=== PATIENT | male | born 1995 | race Asian ===

== ENCOUNTER 2021-11-12 20:03 | Emergency (ER) | payer OTHER ==
[~2021-11-12] VITALS: Ht 185.4 cm; Wt 86.3 kg
--- NOTE | 2021-11-12 20:08 | ED Abdominal Pain ---
General Stated Complaint: ABD PAIN History of Present Illness Date Seen by Provider: Nov 12, 2021 Time Seen by Provider: 20:08 Initial Comments 26-year-old male presents with mid abdominal pain. Reports that it started this morning as a crampy pain. Patient reports that he worked outside throughout the day and it was Constant throughout the day. He reports that he came home and ate supper. He ate around 545 and that about an hour or so after that it got significantly worse. Reports has had normal bowel movements, no nausea no vomiting. The pain does not radiate. States that he had this couple days ago that was similar when he was working on the heat but went away after he he got indoors cool down and got something to drink. Reports that they try to be sure that they drink plenty of water while working out in the heat. Patient denies any fever, cough or other systemic complaints. Allergies and Home Medications Allergies Coded Allergies: No Known Drug Allergies (Unverified , 11/12/21) Patient Home Medication List Home Medication List Reviewed: Yes No Active Prescriptions or Reported Meds Review of Systems Review of Systems Constitutional: No chills, No fever Respiratory: Denies Cough, Denies Shortness of Air Cardiovascular: Denies Chest Pain, Denies Palpitations Gastrointestinal: Abdominal Pain; Denies Constipated, Denies Diarrhea, Denies Nausea, Denies Vomiting Genitourinary: No Symptoms Reported Musculoskeletal: no symptoms reported Skin: no symptoms reported Psychiatric/Neurological: No Symptoms Reported Endocrine: No Symptoms Reported Physical Exam Vital Signs Vital Signs - First Documented 11/12/21 20:08 Temp 36.8 Pulse 122 Resp 22 B/P (MAP) 164/104 (124) Pulse Ox 97 O2 Delivery Room Air Capillary Refill : Height/Weight/BMI Height: '" Weight: lbs. oz. kg; BMI Method: General Appearance: mild distress HEENT: PERRL/EOMI, pharynx normal Neck: full range of motion, supple, normal inspection Respiratory: lungs clear, normal breath sounds, no respiratory distress Cardiovascular: normal peripheral pulses, regular rate, rhythm Gastrointestinal: soft; No distended, No guarding; tenderness (Mild discomfort but not really tenderness) Extremities: normal range of motion, non-tender Neurologic/Psychiatric: alert, normal mood/affect, oriented x 3 Skin: normal color, warm/dry Progress/Results/Core Measures Results/Orders Lab Results Laboratory Tests Test 11/12/21 20:40 11/12/21 22:25 Range/Units White Blood Count 9.3 4.3-11.0 10^3/uL Red Blood Count 5.09 4.30-5.52 10^6/uL Hemoglobin 15.1 13.3-17.7 g/dL Hematocrit 43 40-54 % Mean Corpuscular Volume 85 80-99 fL Mean Corpuscular Hemoglobin 30 25-34 pg Mean Corpuscular Hemoglobin Concent 35 32-36 g/dL Red Cell Distribution Width 12.4 10.0-14.5 % Platelet Count 169 130-400 10^3/uL Mean Platelet Volume 11.8 9.0-12.2 fL Immature Granulocyte % (Auto) 0 % Neutrophils (%) (Auto) 59 42-75 % Lymphocytes (%) (Auto) 29 12-44 % Monocytes (%) (Auto) 9 0-12 % Eosinophils (%) (Auto) 2 0-10 % Basophils (%) (Auto) 0 0-10 % Neutrophils # (Auto) 5.5 1.8-7.8 10^3/uL Lymphocytes # (Auto) 2.7 1.0-4.0 10^3/uL Monocytes # (Auto) 0.9 0.0-1.0 10^3/uL Eosinophils # (Auto) 0.2 0.0-0.3 10^3/uL Basophils # (Auto) 0.0 0.0-0.1 10^3/uL Immature Granulocyte # (Auto) 0.0 0.0-0.1 10^3/uL Sodium Level 142 135-145 MMOL/L Potassium Level 3.6 3.6-5.0 MMOL/L Chloride Level 102 98-107 MMOL/L Carbon Dioxide Level 26 21-32 MMOL/L Anion Gap 14 5-14 MMOL/L Blood Urea Nitrogen 19 H 7-18 MG/DL Creatinine 1.12 0.60-1.30 MG/DL Estimat Glomerular Filtration Rate 94 BUN/Creatinine Ratio 17 Glucose Level 98 70-105 MG/DL Calcium Level 9.8 8.5-10.1 MG/DL Corrected Calcium 8.5-10.1 MG/DL Total Bilirubin 0.3 0.1-1.0 MG/DL Aspartate Amino Transf (AST/SGOT) 16 5-34 U/L Alanine Aminotransferase (ALT/SGPT) 13 0-55 U/L Alkaline Phosphatase 97 40-136 U/L C-Reactive Protein < 0.30 <0.50 MG/DL Total Protein 7.9 6.4-8.2 GM/DL Albumin 5.3 H 3.2-4.5 GM/DL Lipase 10 8-78 U/L Urine Color YELLOW Urine Clarity SL CLOUDY Urine pH 7.0 5-9 Urine Specific [place] 1.020 1.016-1.022 Urine Protein NEGATIVE NEGATIVE Urine Glucose (UA) NEGATIVE NEGATIVE Urine Ketones 1+ H NEGATIVE Urine Nitrite NEGATIVE NEGATIVE Urine Bilirubin NEGATIVE NEGATIVE Urine Urobilinogen 0.2 < = 1.0 MG/DL Urine Leukocyte Esterase NEGATIVE NEGATIVE Urine RBC (Auto) NEGATIVE NEGATIVE Urine RBC RARE /HPF Urine WBC NONE /HPF Urine Squamous Epithelial Cells NONE /HPF Urine Crystals NONE /LPF Urine Bacteria LARGE H /HPF Urine Casts NONE /LPF Urine Mucus SMALL H /LPF Urine Culture Indicated YES My Orders Orders - CAMPA,NICA L DO Cbc With Automated Diff (11/12/21 20:20) Comprehensive Metabolic Panel (11/12/21 20:20) Lipase (11/12/21 20:20) Ua Culture If Indicated (11/12/21 20:20) Crp Fs (11/12/21 20:20) Lactated Ringers (Lr 1000 Ml Iv Solution (11/12/21 20:20) Hyoscyamine Sl Tablet (Levsin Sl Tablet) (11/12/21 20:30) Ed Iv/Invasive Line Start (11/12/21 20:20) Abdomen Flat & Upright/Decub (11/12/21 20:20) Ketorolac Injection (Toradol Injection) (11/12/21 21:13) Lactated Ringers (Lr 1000 Ml Iv Solution (11/12/21 21:13) Urine Culture (11/12/21 22:25) Medications Given in ED Current Medications Medications Dose Ordered Sig/Aurora Route Start Time Stop Time Status Last Admin Dose Admin Hyoscyamine Sulfate 0.125 mg ONCE ONCE SL 11/12/21 20:30 11/12/21 20:31 DC 11/12/21 20:30 0.125 MG Vital Signs/I&O 11/12/21 11/12/21 20:08 21:28 Temp 36.8 36.8 Pulse 122 Resp 22 B/P (MAP) 164/104 (124) Pulse Ox 97 O2 Delivery Room Air Progress Progress Note : Progress Note Patient lab shows no acute findings. His abdominal cramping improved with treatment. I do suspect he was mildly dehydrated as it took almost 1.5 to 2 L before he urinated. Urine showed some bacteria but otherwise no nitrates or leukocytes. At this time I will await cultures prior to treating him. Did not feel his exam or symptoms would warrant a CAT scan at this time. If his symptoms return or continue to worsen he should return to the ER and at that time we we will consider a CT exam. I did recommend he drinks plenty of fluids since he works out in the heat. Patient was stable and discharged home Diagnostic Imaging Diagonstic Imaging: Xray Plain Films/CT/US/NM/MRI: abdomen Comments Date of Exam:11/12/21 ABDOMEN FLAT & UPRIGHT/DECUB INDICATION: Abdominal pain Supine and upright abdominal films are obtained. Upright view shows no free air. The abdominal bowel gas pattern shows no overt intestinal dilatation or obstruction. There does appear to be a large amount of retained food material in the stomach. There are no suspicious calcifications. IMPRESSION: Large amount of retained food material in the stomach. No intestinal obstruction. No suspicious calcification. No free intraperitoneal air. Departure Impression Primary Impression: Dehydration Additional Impression: Abdominal cramping, generalized Disposition: 01 HOME, SELF-CARE Condition: Stable Departure-Patient Inst. Patient Instructions: Stomach Ache and Stomach Upset, Dehydration, Adult ED Add. Discharge Instructions: Follow-up with your primary care provider as needed Drink plenty of liquids and stay hydrated Return to the ER as needed if symptoms return or worsen Scripts No Active Prescriptions or Reported Meds NICA CAMPA DO Nov 12, 2021 20:08
[2021-11-12] MEDS ORDERED: LACTATED RINGERS 1,000 ML IV STA ×2 (20:20→21:13)
[2021-11-12] MEDS ORDERED: HYOSCYAMINE 0.125 MG (LEVSIN) TAB SL ONE (20:30)
--- NOTE | 2021-11-12 20:43 | Diagnostic Imaging Report ---
INDICATION: Abdominal pain Supine and upright abdominal films are obtained. Upright view shows no free air. The abdominal bowel gas pattern shows no overt intestinal dilatation or obstruction. There does appear to be a large amount of retained food material in the stomach. There are no suspicious calcifications. IMPRESSION: Large amount of retained food material in the stomach. No intestinal obstruction. No suspicious calcification. No free intraperitoneal air. Dictated by: Dictated on workstation # [id number]
[2021-11-12 20:46] LABS: BASOPHILS % (AUTO) 0 % (0-10); EOSINOPHILS # (AUTO) 0.2 10^3/uL (0.0-0.3); EOSINOPHILS % (AUTO) 2 % (0-10); HEMATOCRIT 43 % (40-54); HEMOGLOBIN 15.1 g/dL (13.3-17.7); LYMPHOCYTES # (AUTO) 2.7 10^3/uL (1.0-4.0); LYMPHOCYTES % (AUTO) 29 % (12-44); MEAN CORPUSCULAR HEMOGLOBIN 30 pg (25-34); MEAN CORPUSCULAR HGB CONC 35 g/dL (32-36); MEAN CORPUSCULAR VOLUME 85 fL (80-99); MEAN PLATELET VOLUME 11.8 fL (9.0-12.2); MONOCYTES # (AUTO) 0.9 10^3/uL (0.0-1.0); MONOCYTES % (AUTO) 9 % (0-12); NEUTROPHILS # (AUTO) 5.5 10^3/uL (1.8-7.8); NEUTROPHILS % (AUTO) 59 % (42-75); PLATELET COUNT 169 10^3/uL (130-400); WHITE BLOOD COUNT 9.3 10^3/uL (4.3-11.0)
[2021-11-12 21:02] LABS: BUN/CREATININE RATIO 17; CALCIUM 9.8 MG/DL (8.5-10.1); CARBON DIOXIDE 26 MMOL/L (21-32); CHLORIDE 102 MMOL/L (98-107); CREATININE SERUM 1.12 MG/DL (0.60-1.30); GFR ESTIMATED 94; GLUCOSE 98 MG/DL (70-105); POTASSIUM 3.6 MMOL/L (3.6-5.0); SODIUM 142 MMOL/L (135-145)
[2021-11-12 21:03] LABS: ALANINE AMINOTRANSFERASE 13 U/L (0-55); ALBUMIN 5.3 GM/DL (3.2-4.5); ALKALINE PHOSPHATASE 97 U/L (40-136); BILIRUBIN,TOTAL 0.3 MG/DL (0.1-1.0); LIPASE 10 U/L (8-78); TOTAL PROTEIN 7.9 GM/DL (6.4-8.2)
[2021-11-12] MEDS ORDERED: KETOROLAC 30 MG/ML VIAL IVP STA (21:13)
[2021-11-12 22:33] LABS: BILIRUBIN,URINE NEGATIVE (NEGATIVE); CLARITY,URINE SL CLOUDY; COLOR,URINE YELLOW; GLUCOSE, URINE (UA) NEGATIVE (NEGATIVE); KETONES,URINE 1+ (NEGATIVE); LEUKOCYTE ESTERASE ,URINE NEGATIVE (NEGATIVE); NITRITE,URINE NEGATIVE (NEGATIVE); PROTEIN,URINE NEGATIVE (NEGATIVE)
[2021-11-12 22:39] LABS: BACTERIA,URINE LARGE /HPF; RBC,URINE RARE /HPF
[2021-11-12 23:00] VITALS: BP 148/88
[2021-11-13] MEDS ORDERED: ACHD5005 PO (13:31)
== END 2021-11-12 23:00 | disposition home or self-care (01) ==
LOC: ER FS 20:04
DX: E86.0 Dehydration (principal); Z28.310 Unvaccinated for COVID-19
CPT/HCPCS: 36415; 74019; 80053; 81000; 83690; 85025; 86141; 87088

== ENCOUNTER 2021-11-13 08:37 | Day surgery (SDC) | payer OTHER ==
[2021-11-13] VITALS (10 sets, daily range): BP systolic 120–158; BP diastolic 64–84
[~2021-11-13] VITALS: Ht 185 cm; Wt 83.4 kg
[2021-11-13] MEDS ORDERED: DICYCLOMINE 10 MG/ML (BENTYL) 2 ML AMP IM STA (08:48)
[2021-11-13] MEDS ORDERED: NS IV 1000 ML 1,000 ML IV STA (08:48)
[2021-11-13] MEDS ORDERED: IOHEXOL 350 MG/ML 100 ML (OMNIPAQUE 350) VIAL IV ONE (09:00)
[2021-11-13] MEDS ORDERED: HOLD METFORMIN - RECEIVED CONTRAST 20 ML VIAL IV SCH (09:00)
[2021-11-13] MEDS ORDERED: NS 100 ML (IVPB) BAG IV ONE (09:00)
[2021-11-13 09:09] LABS: BASOPHILS % (AUTO) 0 % (0-10); EOSINOPHILS # (AUTO) 0.1 10^3/uL (0.0-0.3); EOSINOPHILS % (AUTO) 1 % (0-10); HEMATOCRIT 43 % (40-54); LYMPHOCYTES # (AUTO) 1.6 10^3/uL (1.0-4.0); LYMPHOCYTES % (AUTO) 11 % (12-44); MEAN CORPUSCULAR HEMOGLOBIN 30 pg (25-34); MEAN CORPUSCULAR HGB CONC 35 g/dL (32-36); MEAN CORPUSCULAR VOLUME 86 fL (80-99); MEAN PLATELET VOLUME 11.8 fL (9.0-12.2); MONOCYTES # (AUTO) 1.4 10^3/uL (0.0-1.0); MONOCYTES % (AUTO) 9 % (0-12); NEUTROPHILS # (AUTO) 12.1 10^3/uL (1.8-7.8); NEUTROPHILS % (AUTO) 79 % (42-75); PLATELET COUNT 162 10^3/uL (130-400); WHITE BLOOD COUNT 15.4 10^3/uL (4.3-11.0)
--- NOTE | 2021-11-13 09:21 | ED GI ---
General Chief Complaint: Abdominal/GI Problems Stated Complaint: ABDOMINAL PAIN Nursing Triage Note: Patient has presented to ER with cc of ongoing abd pain. Patient reports that his pain started yesterday in his upper abd. Last night he was in the ER and he was sent home. Today his pain has moved more general with cramping and more cramping in the right side. He has not taken anything for the pain and came to ER for evaluation. Source of Information: Patient, Old Records History of Present Illness Date Seen by Provider: Nov 13, 2021 Time Seen by Provider: 08:39 Initial Comments 26-year-old male presenting with complaints of continued abdominal pain since being seen yesterday. He states that he has some pain in the epigastric area right under his diaphragm. Otherwise he feels like the pain is a sharp cramping pain that has moved more to the right side of his abdomen. He denies nausea, vomiting, diarrhea, fever, chills. He has not eaten anything since supper at 545 last night. He has been drinking fluids since he was told he was dehydrated but he was unable to sleep overnight because of the increasing pain. He denies any other medical problems and has no primary care provider for follow-up. He has not tried taking anything for the pain. Timing/Duration: 1-2 Days Severity/Quality: Cramping Location: Generalized Abdomen (but a little worse on right side of abdomen) Allergies and Home Medications Allergies Coded Allergies: No Known Drug Allergies (Unverified , 11/12/21) Patient Home Medication List Home Medication List Reviewed: Yes No Active Prescriptions or Reported Meds Review of Systems Review of Systems Constitutional: No chills, No fever EENTM: No Symptoms Reported Respiratory: No Symptoms Reported Cardiovascular: No Symptoms Reported Gastrointestinal: See HPI; Denies Diarrhea, Denies Nausea, Denies Vomiting Genitourinary: No Symptoms Reported Musculoskeletal: no symptoms reported Skin: no symptoms reported Psychiatric/Neurological: No Symptoms Reported Endocrine: No Symptoms Reported Hematologic/Lymphatic: No Symptoms Reported Past Wvfcsyj-Akexom-Vwklfc Hx Patient Social History Tobacco Use?: Yes Tobacco type used: Cigarettes Smoking Status: Current Someday Smoker Use of E-Cig and/or Vaping dev: No Substance use?: No Alcohol Use?: No Pt feels they are or have been: No Immunizations Up To Date First/Initial COVID19 Vaccinat: unvaccinated Past Medical History Surgery/Hospitalization HX: Feet surgery x 2, [place] teeth Physical Exam Vital Signs Vital Signs - First Documented 11/13/21 08:49 Temp 35.7 Pulse 56 Resp 16 B/P (MAP) 145/79 (101) Pulse Ox 99 O2 Delivery Room Air Capillary Refill : Height/Weight/BMI Height: '" Weight: lbs. oz. kg; 24.00 BMI Method: General Appearance: WD/WN, no apparent distress HEENT: PERRL/EOMI, pharynx normal Neck: non-tender, full range of motion, supple, normal inspection Respiratory: chest non-tender, lungs clear, normal breath sounds, no respiratory distress, no accessory muscle use Cardiovascular: normal peripheral pulses, bradycardia Gastrointestinal: soft, no pulsatile mass, abnormal bowel sounds (hypoactive), guarding (RLQ), rebound (RLQ), tenderness (diffuse tenderness but worse on the epigastric and RLQ areas) Rectal: deferred Extremities: normal range of motion, non-tender, normal capillary refill Back: no CVA tenderness 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/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 II-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 nml as tested, no motor/sensory deficits, alert, oriented x 3 Skin: normal color, warm/dry Images 1 - diffuse tenderness to palpation with guarding and rebound in RLQ Progress/Results/Core Measures Results/Orders Lab Results Laboratory Tests Test 11/13/21 09:00 11/13/21 09:15 Range/Units White Blood Count 15.4 H 4.3-11.0 10^3/uL Red Blood Count 4.98 4.30-5.52 10^6/uL Hemoglobin 15.0 13.3-17.7 g/dL Hematocrit 43 40-54 % Mean Corpuscular Volume 86 80-99 fL Mean Corpuscular Hemoglobin 30 25-34 pg Mean Corpuscular Hemoglobin Concent 35 32-36 g/dL Red Cell Distribution Width 12.6 10.0-14.5 % Platelet Count 162 130-400 10^3/uL Mean Platelet Volume 11.8 9.0-12.2 fL Immature Granulocyte % (Auto) 0 % Neutrophils (%) (Auto) 79 H 42-75 % Lymphocytes (%) (Auto) 11 L 12-44 % Monocytes (%) (Auto) 9 0-12 % Eosinophils (%) (Auto) 1 0-10 % Basophils (%) (Auto) 0 0-10 % Neutrophils # (Auto) 12.1 H 1.8-7.8 10^3/uL Lymphocytes # (Auto) 1.6 1.0-4.0 10^3/uL Monocytes # (Auto) 1.4 H 0.0-1.0 10^3/uL Eosinophils # (Auto) 0.1 0.0-0.3 10^3/uL Basophils # (Auto) 0.0 0.0-0.1 10^3/uL Immature Granulocyte # (Auto) 0.0 0.0-0.1 10^3/uL Neutrophils % (Manual) 72 % Lymphocytes % (Manual) 7 % Monocytes % (Manual) 7 % Eosinophils % (Manual) 1 % Basophils % (Manual) 0 % Band Neutrophils 8 % Atypical Lymphocytes 5 % Platelet Estimate NORMAL Blood Morphology Comment NORMAL Sodium Level 138 135-145 MMOL/L Potassium Level 3.9 3.6-5.0 MMOL/L Chloride Level 102 98-107 MMOL/L Carbon Dioxide Level 24 21-32 MMOL/L Anion Gap 12 5-14 MMOL/L Blood Urea Nitrogen 14 7-18 MG/DL Creatinine 0.96 0.60-1.30 MG/DL Estimat Glomerular Filtration Rate 113 BUN/Creatinine Ratio 15 Glucose Level 97 70-105 MG/DL Calcium Level 9.4 8.5-10.1 MG/DL Corrected Calcium 8.5-10.1 MG/DL Total Bilirubin 0.8 0.1-1.0 MG/DL Aspartate Amino Transf (AST/SGOT) 16 5-34 U/L Alanine Aminotransferase (ALT/SGPT) 12 0-55 U/L Alkaline Phosphatase 93 40-136 U/L Total Protein 7.2 6.4-8.2 GM/DL Albumin 4.7 H 3.2-4.5 GM/DL Lipase 10 8-78 U/L Urine Color PALE YELLOW Urine Clarity CLEAR Urine pH 5.0 5-9 Urine Specific [place] <=1.005 1.016-1.022 Urine Protein NEGATIVE NEGATIVE Urine Glucose (UA) NEGATIVE NEGATIVE Urine Ketones NEGATIVE NEGATIVE Urine Nitrite NEGATIVE NEGATIVE Urine Bilirubin NEGATIVE NEGATIVE Urine Urobilinogen 0.2 < = 1.0 MG/DL Urine Leukocyte Esterase NEGATIVE NEGATIVE Urine RBC (Auto) NEGATIVE NEGATIVE Urine RBC NONE /HPF Urine WBC NONE /HPF Urine Squamous Epithelial Cells RARE /HPF Urine Crystals NONE /LPF Urine Bacteria NEGATIVE /HPF Urine Casts NONE /LPF Urine Mucus NEGATIVE /LPF Urine Culture Indicated NO Urine Opiates Screen NEGATIVE NEGATIVE Urine Oxycodone Screen NEGATIVE NEGATIVE Urine Methadone Screen NEGATIVE NEGATIVE Urine Propoxyphene Screen NEGATIVE NEGATIVE Urine Barbiturates Screen NEGATIVE NEGATIVE Ur Tricyclic Antidepressants Screen NEGATIVE NEGATIVE Urine Phencyclidine Screen NEGATIVE NEGATIVE Urine Amphetamines Screen NEGATIVE NEGATIVE Urine Methamphetamines Screen NEGATIVE NEGATIVE Urine Benzodiazepines Screen NEGATIVE NEGATIVE Urine Cocaine Screen NEGATIVE NEGATIVE Urine Cannabinoids Screen NEGATIVE NEGATIVE My Orders Orders - GEORGES OREILLY MD Comprehensive Metabolic Panel (11/13/21 08:48) Lipase (11/13/21 08:48) Ua Culture If Indicated (11/13/21 08:48) Ed Iv/Invasive Line Start (11/13/21 08:48) Cbc With Automated Diff (11/13/21 08:48) Ct Abdomen/Pelvis W (11/13/21 08:48) Ns Iv 1000 Ml (Sodium Chloride 0.9%) (11/13/21 08:48) Dicyclomine Injection (Bentyl Injection) (11/13/21 08:48) Drug Screen Stat (Urine) (11/13/21 08:48) Iohexol Injection (Omnipaque 350 Mg/Ml 1 (11/13/21 09:00) Received Contrast (Hold Metformin- Contr (11/13/21 09:00) Ns (Ivpb) (Sodium Chloride 0.9% Ivpb Bag (11/13/21 09:00) Manual Differential (11/13/21 09:00) Ketorolac Injection (Toradol Injection) (11/13/21 10:06) Medications Given in ED Current Medications Medications Dose Ordered Sig/Aurora Route Start Time Stop Time Status Last Admin Dose Admin Iohexol 100 ml ONCE ONCE IV 11/13/21 09:00 11/13/21 09:01 DC 11/13/21 09:18 100 ML Sodium Chloride 100 ml ONCE ONCE IV 11/13/21 09:00 11/13/21 09:01 DC 11/13/21 09:18 100 ML Vital Signs/I&O 11/13/21 08:49 Temp 35.7 Pulse 56 Resp 16 B/P (MAP) 145/79 (101) Pulse Ox 99 O2 Delivery Room Air Blood Pressure Mean: 101 Progress Progress Note #1: Progress Note Recheck lab and order CT scan of the abdomen and pelvis since he was having worsening pain. Give a liter of normal saline for hydration while waiting on testing. Try Bentyl for pain to see if that helps with the cramping pain. Keep NPO until test results are back. Progress Note #2: Progress Note Lab now shows an elevated white blood cell count of 15.4 thousand with a left shift. His CT scan came back showing acute uncomplicated appendicitis without abscess or perforation. Discussed with Dr. Womack at 9:39 AM. He advised to have the patient come to same-day surgery outpatient services at [facility] and they would plan on adding him onto the schedule for today. I updated the patient about the test results and findings as well as the plan. Stressed importance of not eating or drinking anything until after surgery. We will contact the same-day surgery center to see if they needed any further information prior to discharging. Patient stated he was still having some pain but it was improved after the Bentyl. We will give a single dose of Toradol to try and help with his pain until he gets to [place] for surgery. Progress Note #3: Progress Note Chemistry, UA and UDS all appears table and he shows improved hydration after the drinking fluids overnight and this am as well as no further ketones in urin e. UDS negative for illicit substances. Give Toradol 15 mg IV prior to discharge and having him go to Same Day Surgery. Diagnostic Imaging Diagonstic Imaging: CT Plain Films/CT/US/NM/MRI: abdomen, pelvis Comments [facility] [place], [place] NAME: JOSE RAFAEL BURRIS [facility] REC#: [id number] PT STATUS: REG ER : 1995 PHYSICIAN: GEORGES OREILLY MD ADMIT DATE: 11/13/21/ER FS Draft Date of Exam:11/13/21 CT ABDOMEN/PELVIS W PROCEDURE: CT abdomen and pelvis with contrast. TECHNIQUE: Multiple contiguous axial images were obtained through the abdomen and pelvis after administration of intravenous contrast. Auto Exposure Controls were utilized during the CT exam to meet ALARA standards for radiation dose reduction. All CT scans use one or more of the following dose optimizing techniques: automated exposure control, MA and/or KvP adjustment based on patient size and exam type or iterative reconstruction. INDICATION: Diffuse abdominal pain. COMPARISON: Abdominal radiographs 11/12/2021. FINDINGS: Appendicolith in the mid appendix with dilation and mucosal hyperenhancement of the more distal appendix. The more distal portion of the appendix measures up to 1.3 cm. There is some mild adjacent inflammatory change including a tiny amount of fluid layering along the anterior aspect of the right iliopsoas musculature. No free intraperitoneal air. No evidence of bowel obstruction. No lymphadenopathy. The lung bases are clear. The liver, gallbladder, pancreas, spleen, adrenals, kidneys, collecting systems and bladder are negative. No acute osseous findings. IMPRESSION: CT findings consistent with acute uncomplicated appendicitis. There is an appendicolith in the mid appendix with dilation of the more distal appendix. There is also some adjacent inflammatory change including a small amount of fluid layering along the right iliopsoas musculature. Dictated on workstation # [id number] Dict: 11/13/21925 Trans: 11/13/21 0934 [id number] Interpreted by: ED CAVAZOS MD Electronically signed by: Reviewed: Reviewed by Me Departure Impression Primary Impression: Acute appendicitis with localized peritonitis Qualified Codes: K35.30 - Acute appendicitis with localized peritonitis, without perforation or gangrene Disposition: HOME, SELF-CARE Condition: Stable Departure-Patient Inst. Decision time for Depature: 09:40 Referrals: ASIM WOMACK,LOCAL PHYSICIAN (PCP) Primary Care Physician Patient Instructions: Appendectomy, Laparoscopic Surgery, Appendicitis in Adults Add. Discharge Instructions: Go directly to Outpatient [facility] Day Surgery Center [facility]. Dr. Womack will perform surgery today to remove your Appendix and then you should be able to be released later today to go home. You will need to have someone go with you as you will need someone else to drive you home after the surgery. Do not eat or drink anything more until after you have surgery. All discharge instructions reviewed with patient and/or family. Voiced understanding. Scripts No Active Prescriptions or Reported Meds GEORGES OREILLY MD Nov 13, 2021 09:21
[2021-11-13 09:31] LABS: POTASSIUM 3.9 MMOL/L (3.6-5.0); SODIUM 138 MMOL/L (135-145)
[2021-11-13 09:32] LABS: ALANINE AMINOTRANSFERASE 12 U/L (0-55); ALBUMIN 4.7 GM/DL (3.2-4.5); ALKALINE PHOSPHATASE 93 U/L (40-136); BILIRUBIN,TOTAL 0.8 MG/DL (0.1-1.0); BUN/CREATININE RATIO 15; CALCIUM 9.4 MG/DL (8.5-10.1); CARBON DIOXIDE 24 MMOL/L (21-32); CHLORIDE 102 MMOL/L (98-107); CREATININE SERUM 0.96 MG/DL (0.60-1.30); GFR ESTIMATED 113; GLUCOSE 97 MG/DL (70-105); LIPASE 10 U/L (8-78); TOTAL PROTEIN 7.2 GM/DL (6.4-8.2)
--- NOTE | 2021-11-13 09:35 | Diagnostic Imaging Report ---
PROCEDURE: CT abdomen and pelvis with contrast. TECHNIQUE: Multiple contiguous axial images were obtained through the abdomen and pelvis after administration of intravenous contrast. Auto Exposure Controls were utilized during the CT exam to meet ALARA standards for radiation dose reduction. All CT scans use one or more of the following dose optimizing techniques: automated exposure control, MA and/or KvP adjustment based on patient size and exam type or iterative reconstruction. INDICATION: Diffuse abdominal pain. COMPARISON: Abdominal radiographs 11/12/2021. FINDINGS: Appendicolith in the mid appendix with dilation and mucosal hyperenhancement of the more distal appendix. The more distal portion of the appendix measures up to 1.3 cm. There is some mild adjacent inflammatory change including a tiny amount of fluid layering along the anterior aspect of the right iliopsoas musculature. No free intraperitoneal air. No evidence of bowel obstruction. No lymphadenopathy. The lung bases are clear. The liver, gallbladder, pancreas, spleen, adrenals, kidneys, collecting systems and bladder are negative. No acute osseous findings. IMPRESSION: CT findings consistent with acute uncomplicated appendicitis. There is an appendicolith in the mid appendix with dilation of the more distal appendix. There is also some adjacent inflammatory change including a small amount of fluid layering along the right iliopsoas musculature. Dictated by: Dictated on workstation # [id number]
[2021-11-13 09:46] LABS: BILIRUBIN,URINE NEGATIVE (NEGATIVE); CLARITY,URINE CLEAR; GLUCOSE, URINE (UA) NEGATIVE (NEGATIVE); KETONES,URINE NEGATIVE (NEGATIVE); LEUKOCYTE ESTERASE ,URINE NEGATIVE (NEGATIVE); NITRITE,URINE NEGATIVE (NEGATIVE); PROTEIN,URINE NEGATIVE (NEGATIVE)
[2021-11-13 09:59] LABS: BACTERIA,URINE NEGATIVE /HPF; COLOR,URINE PALE YELLOW; SQUAMOUS EPITHELIAL CELL,UR RARE /HPF
[2021-11-13 10:00] LABS: ATYPICAL LYMPHOCYTES 5 %; BAND NEUTROPHILS 8 %; BASOPHILS % (MANUAL) 0 %; EOSINOPHILS % (MANUAL) 1 %; LYMPHOCYTES % (MANUAL) 7 %; MONOCYTES % (MANUAL) 7 %; NEUTROPHILS % (MANUAL) 72 %; PLATELET ESTIMATE NORMAL; RBC MORPH NORMAL
[2021-11-13 10:01] LABS: AMPHETAMINE SCREEN, URINE NEGATIVE (NEGATIVE); BARBITURATE SCREEN URINE NEGATIVE (NEGATIVE); BENZODIAZEPINES SCREEN URINE NEGATIVE (NEGATIVE); CANNABINOID SCREEN, URINE NEGATIVE (NEGATIVE); COCAINE SCREEN URINE NEGATIVE (NEGATIVE); METHADONE STAT NEGATIVE (NEGATIVE); OPIATE SCREEN URINE NEGATIVE (NEGATIVE); OXYCODONE STAT NEGATIVE (NEGATIVE); PROPOXYPHENE STAT NEGATIVE (NEGATIVE); TRICYCLIC ANTIDEPRESSANTS SCRE NEGATIVE (NEGATIVE)
[2021-11-13] MEDS ORDERED: KETOROLAC 30 MG/ML VIAL IVP STA (10:06)
[2021-11-13] MEDS ORDERED: ceFAZolin 2 GM IV Premixed 50 ML ONE (11:42)
--- NOTE | 2021-11-13 11:43 | Consultation - Surgery ---
History of Present Illness History of Present Illness Patient Consulted On(timothy/time) 11/13/21 11:38 Time Seen by Provider: 11:29 History of Present Illness Surgery asked to see pt regarding Acute Appendicitis. HPI per ED: 26-year-old male presenting with complaints of continued abdominal pain since being seen yesterday. He states that he has some pain in the epigastric area right under his diaphragm. Otherwise he feels like the pain is a sharp cramping pain that has moved more to the right side of his abdomen. He denies nausea, vomiting, diarrhea, fever, chills. He has not eaten anything since supper at 545 last night. He has been drinking fluids since he was told h e was dehydrated but he was unable to sleep overnight because of the increasing pain. He denies any other medical problems and has no primary care provider for follow-up. He has not tried taking anything for the pain. Timing/Duration: 1-2 Days Severity/Quality: Cramping Location: Generalized Abdomen (but a little worse on right side of abdomen) When I spoke to pt he described the pain as 5 out of 10, sharp and crampy. The car ride hurt his abdomen a little. Pain started diffusely and now has all localized in RLQ. Allergies and Home Medications Allergies Coded Allergies: No Known Drug Allergies (Unverified , 11/12/21) Patient Home Medication List Home Medication List Reviewed: Yes No Active Prescriptions or Reported Meds Past Vclthpi-Bucgyf-Oylquq Hx Patient Social History Smoking Status: Current Someday Smoker (occasional cigar) Type Used: Cigars Alcohol Use?: No Have you traveled recently?: No Surgeries History of Surgeries: Yes Surgeries: Orthopedic (on his feet) Respiratory History of Respiratory Disorde: No Cardiovascular History of Cardiac Disorders: No Neurological History of Neurological Disord: No Genitourinary History of Genitourinary Disor: No Gastrointestinal History of Gastrointestinal Di: No Musculoskeletal History of Musculoskeletal Dis: No Endocrine History of Endocrine Disorders: No HEENT History of HEENT Disorders: No Loss of Vision: Denies Hearing Impairment: Denies Cancer History of Cancer: No Psychosocial History of Psychiatric Problem: No Integumentary History of Skin or Integumenta: No Family Medical History Significant Family History: Other Conditions/Hx (pt denies any HTN, DM, CAD in either parent) Review of Systems-General Constitutional: No chills, No diaphoresis; malaise EENTM: No blurred vision, No double vision, No mouth pain, No mouth swelling, No epistaxis Respiratory: No cough, No dyspnea on exertion, No short of breath Cardiovascular: No chest pain, No palpitations Gastrointestinal: abdominal pain (RLQ); No jaundice; loss of appetite ("just not hungry", tried some gatorade this am); No nausea, No vomiting Genitourinary: No dysuria, No frequency, No hematuria Musculoskeletal: No joint pain, No joint swelling, No muscle pain, No muscle stiffness Skin: No change in color, No change in hair/nails Psychiatric/Neurological: Denies Anxiety, Denies Depressed, Denies Seizure, Denies Tremors Physical Exam-General Problems Physical Exam Vital Signs Vital Signs - First Documented 11/13/21 08:49 Temp 35.7 Pulse 56 Resp 16 B/P (MAP) 145/79 (101) Pulse Ox 99 O2 Delivery Room Air Capillary Refill : General Appearance: WD/WN, mild distress Eyes: Bilateral Eye PERRL, Bilateral Eye EOMI HEENT: pharynx normal; No scleral icterus (R), No scleral icterus (L) Neck: non-tender, supple Respiratory: chest non-tender, lungs clear, normal breath sounds, no respiratory distress, no accessory muscle use Cardiovascular: regular rate, rhythm, no murmur Gastrointestinal: soft, no organomegaly; No distended; guarding (voluntary), tenderness (RLQ mostly), hernia (small umbilical) Back: no CVA tenderness, no vertebral tenderness Extremities: normal range of motion, non-tender, normal inspection, no pedal edema, no calf tenderness 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, no motor/sensory deficits, alert, normal mood/affect, oriented x 3 Skin: normal color, warm/dry Lymphatic: no adenopathy (neck, axilla or groin) Data Review Labs Laboratory Tests 11/13/21 09:00: White Blood Count 15.4H, Red Blood Count 4.98, Hemoglobin 15.0, Hematocrit 43, Mean Corpuscular Volume 86, Mean Corpuscular Hemoglobin 30, Mean Corpuscular Hemoglobin Concent 35, Red Cell Distribution Width 12.6, Platelet Count 162, Mean Platelet Volume 11.8, Immature Granulocyte % (Auto) 0, Neutrophils (%) (Auto) 79H, Lymphocytes (%) (Auto) 11L, Monocytes (%) (Auto) 9, Eosinophils (%) (Auto) 1, Basophils (%) (Auto) 0, Neutrophils # (Auto) 12.1H, Lymphocytes # (Auto) 1.6, Monocytes # (Auto) 1.4H, Eosinophils # (Auto) 0.1, Basophils # (Auto) 0.0, Immature Granulocyte # (Auto) 0.0, Neutrophils % (Manual) 72, Lymphocytes % (Manual) 7, Monocytes % (Manual) 7, Eosinophils % (Manual) 1, Basophils % (Manual) 0, Band Neutrophils 8, Atypical Lymphocytes 5, Platelet Estimate NORMAL, Blood Morphology Comment NORMAL, Sodium Level 138, Potassium Level 3.9, Chloride Level 102, Carbon Dioxide Level 24, Anion Gap 12, Blood Urea Nitrogen 14, Creatinine 0.96, Estimat Glomerular Filtration Rate 113, BUN/Creatinine Ratio 15, Glucose Level 97, Calcium Level 9.4, Corrected Calcium , Total Bilirubin 0.8, Aspartate Amino Transf (AST/SGOT) 16, Alanine Aminotransferase (ALT/SGPT) 12, Alkaline Phosphatase 93, Total Protein 7.2, Albumin 4.7H, Lipase 10 11/13/21 09:15: Urine Color PALE YELLOW, Urine Clarity CLEAR, Urine pH 5.0, Urine Specific Mobile <=1.005, Urine Protein NEGATIVE, Urine Glucose (UA) NEGATIVE, Urine Ketones NEGATIVE, Urine Nitrite NEGATIVE, Urine Bilirubin NEGATIVE, Urine Urobilinogen 0.2, Urine Leukocyte Esterase NEGATIVE, Urine RBC (Auto) NEGATIVE, Urine RBC NONE, Urine WBC NONE, Urine Squamous Epithelial Cells RARE, Urine Crystals NONE, Urine Bacteria NEGATIVE, Urine Casts NONE, Urine Mucus NEGATIVE, Urine Culture Indicated NO, Urine Opiates Screen NEGATIVE, Urine Oxycodone Screen NEGATIVE, Urine Methadone Screen NEGATIVE, Urine Propoxyphene Screen NEGATIVE, Urine Barbiturates Screen NEGATIVE, Ur Tricyclic Antidepressants Screen NEGATIVE, Urine Phencyclidine Screen NEGATIVE, Urine Amphetamines Screen NEGATIVE, Urine Methamphetamines Screen NEGATIVE, Urine Benzodiazepines Screen NEGATIVE, Urine Cocaine Screen NEGATIVE, Urine Cannabinoids Screen NEGATIVE Radiology Date of Exam:11/13/21 CT ABDOMEN/PELVIS W PROCEDURE: CT abdomen and pelvis with contrast. TECHNIQUE: Multiple contiguous axial images were obtained through the abdomen and pelvis after administration of intravenous contrast. Auto Exposure Controls were utilized during the CT exam to meet ALARA standards for radiation dose reduction. All CT scans use one or more of the following dose optimizing techniques: automated exposure control, MA and/or KvP adjustment based on patient size and exam type or iterative reconstruction. INDICATION: Diffuse abdominal pain. COMPARISON: Abdominal radiographs 11/12/2021. FINDINGS: Appendicolith in the mid appendix with dilation and mucosal hyperenhancement of the more distal appendix. The more distal portion of the appendix measures up to 1.3 cm. There is some mild adjacent inflammatory change including a tiny amount of fluid layering along the anterior aspect of the right iliopsoas musculature. No free intraperitoneal air. No evidence of bowel obstruction. No lymphadenopathy. The lung bases are clear. The liver, gallbladder, pancreas, spleen, adrenals, kidneys, collecting systems and bladder are negative. No acute osseous findings. IMPRESSION: CT findings consistent with acute uncomplicated appendicitis. There is an appendicolith in the mid appendix with dilation of the more distal appendix. There is also some adjacent inflammatory change including a small amount of fluid layering along the right iliopsoas musculature. Dictated on workstation # [id number] Dict: 11/13/21925 Trans: 11/13/21 [id number] Interpreted by: ED CAVAZOS MD Assessment/Plan Assessment/Plan Assessment/Plan Acute Appendicitis Pt drove down from [place], secondary to pain and to have surgery. He will have IV started and get IV fluids, pain meds, IV ABX just prior to OR, anti- emetics as needed. I reviewed the CT myself (read by Radiologist as acute appendicitis) and see the appendicolith and enlarged appendix; does not appear to be any inflammation or fluid. I talked to pt about surgery, going over risks and complications not limited to pain, bleeding, infection, scar, damage to bowel and need for further procedure. All questions answered to his satisfaction. Plan is Laparoscopic Appendectomy, possible open and all other indicated procedures. Will get consent and unless we find something we aren't expecting he will most likely go home today. ASIM WOMACK DO Nov 13, 2021 11:43
[2021-11-13] MEDS ORDERED: LIDOCAINE/EPI 2% 1:200,00 (XYLOCAINE) 20 ML VIAL ONE (11:48)
[2021-11-13] MEDS ORDERED: ceFAZolin 2 GM IV Premixed 50 ML IV ONE (12:00)
[2021-11-13] MEDS ORDERED: proPOfol 200 MG/20 ML (DIPRIVAN) VIAL IV ONE (12:11)
[2021-11-13] MEDS ORDERED: fentaNYL INJ 100 MCG/2 ML AMP ONE (12:11)
[2021-11-13] MEDS ORDERED: ONDANSETRON 4 MG/2 ML (SDV) Z0FRAN ONE (12:11)
[2021-11-13] MEDS ORDERED: LIDOCAINE PF 2% 5 ML (XYLOCAINE) VIAL ONE (12:11)
[2021-11-13] MEDS ORDERED: SEVOFLURANE (ULTANE) 15 ML INHAL SOLN ONE (12:11)
[2021-11-13] MEDS ORDERED: MIDAZOLAM 2 MG/2 ML (VERSED) VIAL ONE (12:12)
[2021-11-13] MEDS ORDERED: SUGAMMADEX 500 MG/5 ML VIAL (BRIDION) IV ONE (13:08)
[2021-11-13] MEDS ORDERED: ROCURONIUM 50 MG/5 ML (ZEMURON) VIAL IV ONE (13:08)
[2021-11-13] MEDS ORDERED: KETOROLAC 30 MG/ML VIAL ONE (13:09)
--- NOTE | 2021-11-13 13:21 | Discharge Inst-Surgical ---
Discharge Inst-Surgical Depart Medication/Instructions New, Converted or Re-Newed RX: Transmitted to Pharmacy Patient Instructions Follow up Appt: Make appointment for 1 week. [phone] Instructions: No lifting greater than 20 pounds. No strenuous activity. May shower in 24 hours, no tub bath or soaking. Use incentive spirometer at home as directed. No Smoking Skin/Wound Care: May remove bandages in am. You need to leave the Dermabond on incision it will fall off on it's own. Symptoms to Report: Appetite Changes, Extremity Discoloration, Numbness/Tingling, Swelling Increased, Bleeding Excessive, Eyesight Changes, Pain Increased, Urine Color Change, Constipation(Persistent), Fever over 101 degree F, Pain/Pressure in chest, Urinating Difficulty, Cough Up/Vomit Blood, Heart Beat Irreg/Pounding, Pain/Pressure in jaw, Cramps in feet or legs, Lightheadedness, Pain/Pressure in shoulder, Diarrhea(Persistent), Memory Changes Suddenly, Questions/Concerns, Weight gain consecutive days, Dizziness/Fainting, Nausea/Vomiting, Shortness of Breath, Weight gain over 2 pounds If questions or concerns contact your physician Or seek help at emergency department. Activity Activity as Tolerated: Yes Activity Instructions: Avoid Stress to Incision Driving Instructions: No Driving/Refer to Dr. Allison Discharge Diet: No Restrictions Diet After 24 Hours: Clear Liquid if Nauseous If Any Problems/Questions/Issu: Contact Your Physician, Go to Emergency Room Skin/Wound Care Infection Signs and Symptoms: Increased Redness, Foul Odor of Wound, Increased Drainage, Skin Itchy or Has a Rash, Increased Swelling, Temperature Above 101 F Wound Care Comment: heating pad to shoulder or neck tonight for pain Bathing Instructions: Shower Stitches/Mercer/Dermabond Dis: Dermabond Ice Pack: Ice On and Off Site ASIM WOMACK DO Nov 13, 2021 13:21
--- NOTE | 2021-11-13 13:25 | Progress Note-Post Operative ---
Post-Operative Progess Note Surgeon (s)/Loading Manager (s) Surgeon ASIM WOMACK DO Loading Manager: none Pre-Operative Diagnosis ACUTE APPY Post-Operative Diagnosis same plus left inguinal hernia indirect and start of right Procedure & Operative Findings Date of Procedure 11/13/21 Procedure Performed/Findings PROCEDURE: Laparoscopic appendectomy. COMPLICATIONS: None. INDICATIONS: The patient is a 26 year old male who has been having right lower quadrant abdominal pain. Patient's exam consistent with appendicitis. I discussed risk and benefits of laparoscopic appendectomy and all indicated procedures with the possibility being a normal appendix. The patient understands the risks and benefits and wishes to proceed. Consent was signed on the chart. DESCRIPTION OF PROCEDURE: The patient was taken to the operating suite, prepped and draped in a sterile fashion. Timeout was performed. Local anesthetic was infiltrated just above the umbilicus and 11-blade scalpel was used to make a skin incision. Cautery was used to dissect down to the fascia and scored. Kochers were used to grasp and elevate it and the abdomen was then entered. A 0 Vicryl was placed in a [id number] fashion for closure at the end of the case. The balloon trocar was inserted into the abdomen and pneumoperitoneum was achieved. Under direct visualization of the laparoscope, a 5 mm trocar was placed in the suprapubic region and a 5 mm trocar was placed in the left lower quadrant. Appendix was located, it almost appeared necrotic and had fibrinous material surrounding it. Used the Ligasure to disect down the mesoappendix going through the appendiceal artery until I was at the base of the appendix and it was only attached to the cecum. Made sure I was well away from the terminal ileum. Once at the base an Endo-SHANIA 2.5 stapler was then fired across the base of the appendix. It was then placed in an Endobag and removed through the 12 mm trocar site. The abdomen was then irrigated and guadarrama ctioned. Noted a left inguinal hernia and the beginnings of right, pictures taken. The abdomen was then desufflated and the trocars were removed. The 0 Vicryl placed at the beginning of the case was then tied closing the 12 mm fascial defect. The skin was then closed using 4-0 Monocryl in a subcuticular fashion. The abdomen was then washed and dried and Skin Affix was placed over the incisions. The patient tolerated the procedure well without any complications and was taken to the recovery room in stable condition. Anesthesia Type GET Estimated Blood Loss Estimated blood loss (mL): scant Specimens/Packing Specimens Removed appendix ASIM WOMACK DO Nov 13, 2021 13:25
[2021-11-13] MEDS ORDERED: ACHD5005 PO (13:31)
[2021-11-13] MEDS ORDERED: HYDROmorphone 2 MG/ML VIAL (DILAUDID) IV ONE (13:45)
[2021-11-13] MEDS ORDERED: ONDANSETRON 4 MG/2 ML (SDV) Z0FRAN IVP PRN (13:45)
--- NOTE | 2021-11-14 07:45 | Anesthesia-General Post-Op ---
General Patient Condition Mental Status/LOC: Same as Preop Cardiovascular: Satisfactory Nausea/Vomiting: Absent Respiratory: Satisfactory Pain: Controlled Complications: Absent Post Op Complications Complications None Follow Up Care/Instructions Patient Instructions None needed. Anesthesia/Patient Condition Patient Condition Patient is doing well, no complaints, stable vital signs, no apparent adverse anesthesia problems. No complications reported per nursing. D/C home per [facility] Criteria: Yes TAMICA ARCE CRNA Nov 14, 2021 07:45
== END 2021-11-13 15:15 ==
LOC: EDUNIT# 08:37 → ER FS 08:39 → SDC 11:15
PROVIDERS: ATTEND Surgery
DX: K35.80 Unspecified acute appendicitis (principal); K40.90 Unilateral inguinal hernia, without obstruction or gangrene, not specified as recurrent; F17.210 Nicotine dependence, cigarettes, uncomplicated
CPT/HCPCS: 36415; 74177; 80053; 80306; 81000; 83690; 85007; 85027; 87081; 96372; 96374; Q9967